=== PATIENT | female | born 1995 | race Caucasian/White ===

== ENCOUNTER 2023-02-22 12:11 | Observation (INO) | payer OTHER ==
[~2023-02-22 12:11] MED LIST: Iopamidol-370 76% 500 ML MDV (1 ML CHARGE) ONE
[2023-02-22] MEDS ORDERED: Morphine 4 MG/ML VIAL ONE ×3 (13:04→15:31)
[2023-02-22] MEDS ORDERED: Ondansetron PF 4 MG/2 ML Vial ONE ×3 (13:04→17:29)
[2023-02-22 13:25] LABS: #Monocytes 0.6 thou/uL (0.11-0.59); #Neutrophils 5.5 thou/uL (1.40-6.50); %Basophils 0.5 % (0.0-1.0); %Eosinophils 0.3 % (0.0-10.0); %Lymphocytes 30.1 % (21.0-51.0); %Monocytes 6.3 % (0.0-10.0); %Neutrophils 61.7 % (42.0-75.0); Hematocrit 39.9 % (36.0-47.0); Hemoglobin 13.5 g/dL (12.0-16.0); Mean Corpuscular HGB CONC 33.8 g/dL (32.0-36.0); Mean Corpuscular Hemoglobin 29.8 pg (27.0-31.0); Mean Corpuscular Volume 88.1 fl (78.0-98.0); Mean Platelet Volume 10.6 fL (7.4-10.4); Platelet Count 279 10x3/uL (130-400); RBC Distribution Width 12.4 % (11.5-14.5); Red Blood Cell (RBC) Count 4.53 mill/uL (4.20-5.40); White Blood Cell (WBC) Count 8.9 10x3/uL (4.8-10.8)
[2023-02-22 13:56] LABS: BHCG - Serum Negative (NEGATIVE); Pregs Control Background? CLEAR/WHITE (CLR/WHITE); Pregs Control Bar Appear? YES (CONTROL BAR)
[2023-02-22 14:02] LABS: ALT (SGPT) 105 U/L (8-55); AST (SGOT) 160 U/L (5-34); Albumin 4.3 g/dL (3.5-5.0); Alkaline Phosphatase 64 U/L (40-110); Anion Gap 12 mmol/L (10-20); BUN (Urea Nitrogen) 12 mg/dL (7.0-18.7); Bilirubin, Total 0.5 mg/dL (0.2-1.2); Calc. Creatinine Clearance 0 mL/min (70-130); Carbon Dioxide 25 mmol/L (22-29); Chloride 103 mmol/L (98-107); Estimated GFR 96; Globulin 2.9 g/dL (2.4-3.5); Glucose 127 mg/dL (70-105); Lipase 50 U/L (8-78); Potassium 3.4 mmol/L (3.5-5.1); Protein, Total 7.2 g/dL (6.0-8.3); Sodium 137 mmol/L (136-145)
[2023-02-22] MEDS ORDERED: Ketorolac Tromethamine 30 MG/ML VIAL ONE (16:21)
[2023-02-22] MEDS ORDERED: Glucagon 1 MG/ML KIT IM PRN (17:42)
[2023-02-22] MEDS ORDERED: Ondansetron ODT 4 MG TAB PO PRN (17:42)
[2023-02-22] MEDS ORDERED: hydrALAZINE 20 MG/ML VIAL SLOW IVP PRN (17:42)
[2023-02-22] MEDS ORDERED: Dextrose 5% in Water 1,000 ML IV PRN (17:42)
[2023-02-22] MEDS ORDERED: Ondansetron PF 4 MG/2 ML Vial IVP PRN (17:42)
[2023-02-22] MEDS ORDERED: Dextrose 50% Abboject 50 ML SYRINGE SLOW IVP PRN (17:42)
[2023-02-22] MEDS ORDERED: traMADol HCl 50 MG TAB PO PRN (17:46)
[2023-02-22] MEDS ORDERED: Cyclobenzaprine 10 MG TAB PO PRN (17:46)
[2023-02-22] MEDS: Gabapentin 100 MG CAP PO SCH (18:09)
[2023-02-22] MEDS: Acetaminophen 325 MG TAB PO SCH ×2 (18:09→23:13)
[2023-02-22] MEDS: traMADol HCl 50 MG TAB PO SCH ×2 (18:10→23:13)
[2023-02-22 18:40] VITALS: BMI 20.4
[2023-02-22] MEDS: Senokot S 8.6-50 MG TAB PO SCH (20:57)
[2023-02-22] MEDS: Famotidine 20 MG TAB PO SCH (20:57)
[2023-02-22] MEDS: Ketorolac Tromethamine 30 MG/ML VIAL IVP SCH (23:13)
[2023-02-23] MEDS: Gabapentin 100 MG CAP PO SCH ×2 (02:18→09:30)
[2023-02-23] MEDS: Ketorolac Tromethamine 30 MG/ML VIAL IVP SCH (05:10)
[2023-02-23] MEDS: Acetaminophen 325 MG TAB PO SCH ×2 (05:11→11:33)
[2023-02-23] MEDS: traMADol HCl 50 MG TAB PO SCH ×2 (05:13→11:33)
[2023-02-23 05:39] LABS: #Monocytes 0.9 thou/uL (0.11-0.59); #Neutrophils 5.4 thou/uL (1.40-6.50); %Basophils 0.1 % (0.0-1.0); %Eosinophils 0.5 % (0.0-10.0); %Lymphocytes 26.3 % (21.0-51.0); %Neutrophils 62.9 % (42.0-75.0); Hematocrit 33.6 % (36.0-47.0); Hemoglobin 11.2 g/dL (12.0-16.0); Mean Corpuscular HGB CONC 33.3 g/dL (32.0-36.0); Mean Corpuscular Volume 90.1 fl (78.0-98.0); Mean Platelet Volume 10.3 fL (7.4-10.4); Platelet Count 205 10x3/uL (130-400); RBC Distribution Width 12.6 % (11.5-14.5); Red Blood Cell (RBC) Count 3.73 mill/uL (4.20-5.40); White Blood Cell (WBC) Count 8.7 10x3/uL (4.8-10.8)
[2023-02-23 06:03] LABS: Anion Gap 12 mmol/L (10-20); BUN (Urea Nitrogen) 6 mg/dL (7.0-18.7); Calc. Creatinine Clearance 102 mL/min (70-130); Carbon Dioxide 25 mmol/L (22-29); Chloride 104 mmol/L (98-107); Estimated GFR 115; Glucose 94 mg/dL (70-105); Potassium 3.6 mmol/L (3.5-5.1); Sodium 137 mmol/L (136-145)
[2023-02-23] MEDS ORDERED: Ibuprofen 800 MG TAB PO PRN (07:37)
[2023-02-23] MEDS ORDERED: Ibuprofen 200 MG TAB PO PRN (07:41)
[2023-02-23 08:57] VITALS: BP 101/63; TEMP 97.8
[2023-02-23] MEDS ORDERED: Polyethylene Glycol 3350 17 GM Packet PO SCH (09:00)
[2023-02-23] MEDS: Famotidine 20 MG TAB PO SCH (09:29)
[2023-02-23] MEDS ORDERED: Scopolamine 1.5 mg/72 hour Patch TOP SCH (09:30)
[2023-02-23] MEDS: Senokot S 8.6-50 MG TAB PO SCH (09:31)
== END 2023-02-23 17:30 | disposition home or self-care (01) ==
LOC: ERS 12:11 → SJJU 16:32
PROVIDERS: ADMIT Surgery; ATTEND Surgery
DX: S22.011A Stable burst fracture of first thoracic vertebra, initial encounter for closed fracture (principal); S22.010A Wedge compression fracture of first thoracic vertebra, initial encounter for closed fracture; J45.909 Unspecified asthma, uncomplicated; F32.A Depression, unspecified; Z90.49 Acquired absence of other specified parts of digestive tract; V49.40XA Driver injured in collision with unspecified motor vehicles in traffic accident, initial encounter; Z79.899 Other long term (current) drug therapy
CPT/HCPCS: 36415; 70450; 70498; 71260; 72125; 72170; 74177; 80048; 80053; 83690; 84703; 85025; 93005; 96374; 96375; 96376; G0378; J1885; J2270; J2405; Q9967

== ENCOUNTER 2023-03-07 12:29 | Outpatient (CLI) | payer OTHER | END 2023-03-07 12:30 | disposition home or self-care (01) | LOC: RAD 12:29 | PROVIDERS: ATTEND Physician Assistant | DX: S22.000A Wedge compression fracture of unspecified thoracic vertebra, initial encounter for closed fracture (principal) | CPT/HCPCS: 72070 ==

== ENCOUNTER 2023-04-05 14:36 | Outpatient (CLI) | payer OTHER | END 2023-04-05 14:37 | disposition home or self-care (01) | LOC: BICCT 14:36 | PROVIDERS: ATTEND Surgery | DX: S22.009A Unspecified fracture of unspecified thoracic vertebra, initial encounter for closed fracture (principal) | CPT/HCPCS: 72128 ==

== ENCOUNTER 2023-05-15 10:40 | Outpatient (CLI) | payer OTHER | END 2023-05-15 10:41 | disposition home or self-care (01) | LOC: BICCT 10:40 | PROVIDERS: ATTEND Surgery | DX: S22.000A Wedge compression fracture of unspecified thoracic vertebra, initial encounter for closed fracture (principal) | CPT/HCPCS: 72128 ==